=== PATIENT | male | born 1995 | race Two or more races ===

== ENCOUNTER 2017-09-19 11:48 | Emergency (ER) | payer OTHER ==
[~2017-09-19] VITALS: Ht 167.6 cm; Wt 62.8 kg
[~2017-09-19 11:48] MED LIST: ABILIFY2 MG PO; NOHOMEMEDS
[2017-09-19 12:18] LABS: HEMATOCRIT 45.2 % (38.0-50.0); HEMOGLOBIN 15.5 G/DL (12.5-16.6); MCH 28.7 PG (29.0-34.0); MCHC 34.3 G/DL (30.0-36.0); MCV 83.7 FL (86-99); PLATELET COUNT 205 K/uL (156-360); RBC DIS.WIDTH-CV 11.7 % (11.8-14.6); RBC DIS.WIDTH-SD 35.2 % (39-53); WHITE BLOOD COUNT 7.3 K/uL (4.1-10.2)
[2017-09-19 12:29] LABS: ALBUMIN 4.5 g/dL (3.2-4.8); CHLORIDE 99 mEq/L (99-109); POTASSIUM 4.3 mEq/L (3.7-5.4); SODIUM 137 mEq/L (136-147)
[2017-09-19 12:31] LABS: GLUCOSE 108 mg/dL (70-99); TOTAL PROTEIN 7.8 g/dL (6.4-8.3)
[2017-09-19 12:33] LABS: TOTAL BILIRUBIN 2.7 mg/dL (0.0-1.0)
[2017-09-19 12:35] LABS: ALKALINE PHOSPHATASE 71 IU/L (3-129); CREATININE 1.4 mg/dL (0.6-1.3); GFR ESTIMATE (CALCULATED) > 59 mL/min/ (58.99-99999)
[2017-09-19 12:36] LABS: UREA NITROGEN (BUN) 15 mg/dL (9-23)
[2017-09-19 12:37] LABS: AST (GOT) 24 IU/L (2-34)
[2017-09-19 12:38] LABS: ALT (GPT) 32 IU/L (3-49)
[2017-09-19 14:07] LABS: CREATINE KINASE 37 IU/L (1-294)
[2017-09-19 14:10] LABS: APPEARANCE CLEAR ((CLEAR)); BILIRUBIN NEGATIVE; BLOOD SMALL; COLOR YELLOW ((YELLOW)); GLUCOSE (STRIP) NEGATIVE; KETONES 5; LEUKOCYTES NEGATIVE; NITRITE NEGATIVE; PROTEIN (STRIP) 30; SPECIFIC GRAVITY 1.011 (1.000-1.030); UROBILINOGEN 0.2 MG/DL (0.2-1.0)
[2017-09-19 14:23] LABS: BACTERIA RARE /HPF; EPITHELIAL CELLS RARE /HPF; HYALINE CASTS 0-5 /LPF; MUCUS TRACE /LPF; RED BLOOD CELLS 0-5 /HPF (0-5); UCUL ADDED? NO; WHITE BLOOD CELLS 0-5 /HPF (0-5)
[2017-09-19] MEDS ORDERED: ZOFRAN ODT8 MG PO (15:04)
[2017-09-19] MEDS ORDERED: BENTYL20 MG PO (15:04)
[2017-09-19 15:13] VITALS: BP 123/97
== END 2017-09-19 15:13 | disposition home or self-care (01) ==
LOC: EME 11:48
DX: R11.2 Nausea with vomiting, unspecified (principal); R19.7 Diarrhea, unspecified; R10.9 Unspecified abdominal pain; R51 Headache; R79.89 Other specified abnormal findings of blood chemistry; F17.200 Nicotine dependence, unspecified, uncomplicated
CPT/HCPCS: 80053; 81003; 82550; 85027; 99281; 99284